=== PATIENT | male | born 1960 | race Caucasian/White ===

== ENCOUNTER 2019-09-21 19:28 | Inpatient (IN) ==
[2019-09-21] MEDS ORDERED: MORPHINE 4 MG/1 ML VIAL IV STA (23:06)
[2019-09-21] MEDS ORDERED: PANTOPRAZOLE 40 MG VIAL IV STA (23:06)
[2019-09-21] MEDS ORDERED: SODIUM CHLORIDE 0.9% 500 ML IV STA (23:06)
[2019-09-21] MEDS ORDERED: ONDANSETRON 4 MG/2 ML VIAL IV STA (23:06)
[2019-09-22 00:13] LABS: Basophils % 0.8 % (0.0-0.8); Eosinophils % 0.5 % (0.00-10.9); Hematocrit 46.2 VOL% (42.0-52.0); Hemoglobin 15.8 GM/DL (14.0-18.0); Immature Granulocytes % 0.3 %; Immature Granulocytes Absolute 0.01 #; Lymphocytes # 0.4 10*3/uL (1.4-4.0); Lymphocytes % 9.1 % (21.2-54.2); Mean Corpuscular HGB Conc 34.2 GM/DL (32-36); Mean Corpuscular Volume 97.1 FL (87-102); Mean Platelet Volume 9.6 FL (9.6-12.0); Monocytes % 30.9 % (1.7-12.7); Neutrophils % 58.4 % (38.7-73.9); Platelet Count 244 T/CUMM (130-400); Red Blood Count 4.76 MC/CUMM (3.8-5.5); Red Cell Distribution Width 12.6 % (9.3-17.3); White Blood Count 3.9 T/CUMM (4-12)
[2019-09-22 00:32] LABS: Albumin 3.7 G/DL (3.4-5.0); Bilirubin,Total 0.8 MG/DL (0.2-1.0); Calcium 9.4 MG/DL (8.5-10.1); Osmolality,Calculated 275.7 MOS/KG (273-304); Total Protein 8.2 G/DL (6.4-8.3)
[2019-09-22 01:08] LABS: Lymphocytes 14 % (20-55); Platelet Estimate Normal; Segmented Neutrophils 50 % (50-85); Total Cells Counted 100
[2019-09-22 02:56] LABS: Apearance,Urine CLEAR (Clear); Bilirubin,Urine Negative (Negative); Blood, Urine Small mg/dL (Negative); Glucose,Urine (UA) >=500 mg/dL (Negative); Ketones,Urine 20 mg/dL (Negative); Nitrite,Urine Negative (Negative); Protein,Urine Negative; RBC,Urine 1 /HPF (0-4); Urine Color Yellow (Yellow); Urine Specific Gravity 1.051 (1.001-1.035); Urine Urobilinogen < 2.0 EU/DL (0.2-1.0); WBC,Urine 1 /HPF (0-6)
[2019-09-22] MEDS ORDERED: MORPHINE 4 MG/1 ML VIAL IV STA (02:59)
[2019-09-22] MEDS ORDERED: PIPERACILLIN/TAZOBACTAM 3,375 MG in SODIUM CHLORIDE 0.9% 100 ML IV STA (03:00)
[2019-09-22] MEDS ORDERED: ONDANSETRON 4 MG/2 ML VIAL IV PRN (04:53)
[2019-09-22] MEDS ORDERED: DEXTROSE 10% 250 ML BAG IV PRN (04:59)
[2019-09-22] MEDS ORDERED: GLUCAGON 1 MG VIAL IM PRN (04:59)
[2019-09-22] MEDS ORDERED: HYDROmorphone 2 MG/1 ML VIAL IV STA (05:05)
[2019-09-22] MEDS ORDERED: metroNIDAZOLE INJ 500 MG in PREMIX 1 EACH IV SCH (06:00)
[2019-09-22] MEDS: HYDROmorphone 2 MG/1 ML VIAL IV PRN ×4 (06:07→19:45)
[2019-09-22] MEDS: SODIUM CHLORIDE 0.9% 1,000 ML IV SCH ×2 (06:11→15:00)
[2019-09-22] MEDS: FAMOTIDINE 20 MG/2 ML VIAL IV SCH ×2 (07:33→17:38)
[2019-09-22] MEDS ORDERED: MAGNESIUM SULF RIDER 4 GM in PREMIX 1 EACH IV PRN (08:42)
[2019-09-22] MEDS ORDERED: MAGNESIUM SULF RIDER 2 GM in PREMIX 1 EACH IV PRN (08:42)
[2019-09-22] MEDS ORDERED: ENOXAPARIN 40 MG/0.4 ML SYRINGE SUBCUT SCH (09:00)
[2019-09-22] MEDS: amLODIPine 2.5 MG TABLET PO SCH (10:05)
[2019-09-22] MEDS: INSULIN REGULAR 100 UNIT/ML SUBCUT SCH ×4 (10:10→21:47)
[2019-09-22] MEDS: PIPERACILLIN/TAZOBACTAM 3,375 MG in SODIUM CHLORIDE 0.9% 100 ML IV SCH ×2 (13:38→21:47)
[2019-09-23] MEDS: SODIUM CHLORIDE 0.9% 1,000 ML IV SCH ×3 (02:14→20:15)
[2019-09-23] MEDS: HYDROmorphone 2 MG/1 ML VIAL IV PRN ×4 (03:22→22:55)
[2019-09-23 05:24] LABS: Basophils # 0.1 10*3/uL (0.0-0.2); Basophils % 1.4 % (0.0-0.8); Eosinophils % 0.5 % (0.00-10.9); Hematocrit 42.5 VOL% (42.0-52.0); Hemoglobin 14.1 GM/DL (14.0-18.0); Immature Granulocytes % 0.9 %; Immature Granulocytes Absolute 0.04 #; Lymphocytes # 0.3 10*3/uL (1.4-4.0); Lymphocytes % 7.7 % (21.2-54.2); Mean Corpuscular HGB Conc 33.2 GM/DL (32-36); Mean Platelet Volume 9.6 FL (9.6-12.0); Neutrophils % 66.5 % (38.7-73.9); Platelet Count 232 T/CUMM (130-400); Red Blood Count 4.25 MC/CUMM (3.8-5.5); Red Cell Distribution Width 13.1 % (9.3-17.3); White Blood Count 4.3 T/CUMM (4-12)
[2019-09-23] MEDS: FAMOTIDINE 20 MG/2 ML VIAL IV SCH ×2 (05:38→16:28)
[2019-09-23] MEDS: PIPERACILLIN/TAZOBACTAM 3,375 MG in SODIUM CHLORIDE 0.9% 100 ML IV SCH ×3 (05:41→21:19)
[2019-09-23 05:45] LABS: Band Neutrophils 15 % (0-10); Eosinophils 3 % (0-10); Hypochromasia Slight; Lymphocytes 15 % (20-55); Platelet Estimate Adequate; Segmented Neutrophils 44 % (50-85); Total Cells Counted 100
[2019-09-23 06:03] LABS: Calcium 8.3 MG/DL (8.5-10.1); Osmolality,Calculated 283.3 MOS/KG (273-304)
[2019-09-23] MEDS ORDERED: INFLUENZA VIRUS VACCINE 0.5 ML SYRINGE IM ONE (07:57)
[2019-09-23] MEDS: amLODIPine 2.5 MG TABLET PO SCH (08:17)
[2019-09-23] MEDS: INSULIN REGULAR 100 UNIT/ML SUBCUT SCH ×4 (08:35→21:19)
[2019-09-23] MEDS: POTASSIUM CHLORIDE RIDER 10 MEQ in PREMIX 1 EACH IV PRN ×2 (14:03→15:33)
[2019-09-24 04:57] LABS: Basophils # 0.1 10*3/uL (0.0-0.2); Eosinophils # 0.1 10*3/uL (0.0-0.87); Hematocrit 36.9 VOL% (42.0-52.0); Hemoglobin 12.2 GM/DL (14.0-18.0); Immature Granulocytes Absolute 0.05 #; Lymphocytes # 0.5 10*3/uL (1.4-4.0); Lymphocytes % 9.9 % (21.2-54.2); Mean Corpuscular HGB Conc 33.1 GM/DL (32-36); Mean Corpuscular Volume 99.7 FL (87-102); Mean Platelet Volume 9.7 FL (9.6-12.0); Monocytes % 20.8 % (1.7-12.7); Neutrophils % 66.3 % (38.7-73.9); Platelet Count 198 T/CUMM (130-400)
[2019-09-24 05:38] LABS: Calcium 8.3 MG/DL (8.5-10.1); Osmolality,Calculated 291.4 MOS/KG (273-304)
[2019-09-24 05:56] LABS: Band Neutrophils 15 % (0-10); Eosinophils 1 % (0-10); Lymphocytes 12 % (20-55); Metamyelocytes 9 %; Segmented Neutrophils 45 % (50-85); Total Cells Counted 100
[2019-09-24 05:57] LABS: Hypochromasia 1+; Ovalocytes 1+; Platelet Estimate Normal; Target Cells Few
[2019-09-24 05:58] LABS: Atypical Lymphocytes Few
[2019-09-24] MEDS: PIPERACILLIN/TAZOBACTAM 3,375 MG in SODIUM CHLORIDE 0.9% 100 ML IV SCH ×2 (06:20→14:54)
[2019-09-24] MEDS: FAMOTIDINE 20 MG/2 ML VIAL IV SCH ×2 (06:20→17:43)
[2019-09-24] MEDS: SODIUM CHLORIDE 0.9% 1,000 ML IV SCH (07:32)
[2019-09-24] MEDS: INSULIN REGULAR 100 UNIT/ML SUBCUT SCH ×3 (09:24→16:32)
[2019-09-24] MEDS: POTASSIUM CHLORIDE RIDER 10 MEQ in PREMIX 1 EACH IV PRN (09:24)
[2019-09-24] MEDS: POTASSIUM CHLORIDE INJ 30 MEQ in SODIUM CHLORIDE 0.45% 1,000 ML IV SCH ×2 (11:45→16:32)
[2019-09-24] MEDS: amLODIPine 2.5 MG TABLET PO SCH (12:35)
[2019-09-24 15:53] VITALS: BP 124/76
== END 2019-09-24 17:30 | disposition home or self-care (01) | DRG 439 ==
LOC: N.ED 19:28 → SUPCPDRO 09-22 04:53 → N.EDINP 09-22 04:53 → N.4E 09-22 05:31
PROVIDERS: ADMIT Internal Medicine Cardiovascular Disease; ATTEND Internal Medicine Cardiovascular Disease

== ENCOUNTER 2019-10-25 12:34 | Inpatient (IN) ==
[2019-10-25] MEDS ORDERED: ONDANSETRON 4 MG/2 ML VIAL IV STA (16:23)
[2019-10-25] MEDS ORDERED: SODIUM CHLORIDE 0.9% 1,000 ML IV STA (16:23)
[2019-10-25] MEDS ORDERED: FLUCONAZOLE INJ 200 MG in PREMIX 1 EACH IV ONE (16:23)
[2019-10-25 17:00] LABS: Basophils # 0.1 10*3/uL (0.0-0.2); Basophils % 2.2 % (0.0-0.8); Hematocrit 37.7 VOL% (42.0-52.0); Immature Granulocytes % 1.2 %; Immature Granulocytes Absolute 0.05 #; Lymphocytes # 0.5 10*3/uL (1.4-4.0); Lymphocytes % 11.6 % (21.2-54.2); Mean Corpuscular HGB Conc 34.5 GM/DL (32-36); Mean Platelet Volume 9.9 FL (9.6-12.0); Monocytes % 26.3 % (1.7-12.7); Neutrophils % 58.7 % (38.7-73.9); Platelet Count 326 T/CUMM (130-400); Red Blood Count 4.01 MC/CUMM (3.8-5.5); Red Cell Distribution Width 14.1 % (9.3-17.3); White Blood Count 4.1 T/CUMM (4-12)
[2019-10-25 17:21] LABS: Alanine Aminotransferase 16 U/L (16-61); Albumin 2.4 G/DL (3.4-5.0); Alkaline Phosphatase 110 U/L (45-117); Aspartate Amino Transferase 16 U/L (0-37); Blood Urea Nitrogen 19 MG/DL (7-18); Calcium 8.7 MG/DL (8.5-10.1); Estimated Glom Filtration Rate 117 ML/MIN; Glucose 116 MG/DL (74-106); Osmolality,Calculated 259.1 MOS/KG (273-304); Total Protein 6.8 G/DL (6.4-8.3)
[2019-10-25] MEDS ORDERED: MAGNESIUM SULF RIDER 4 GM in PREMIX 1 EACH IV PRN (19:52)
[2019-10-25] MEDS ORDERED: MAGNESIUM SULF RIDER 2 GM in PREMIX 1 EACH IV PRN (19:52)
[2019-10-25] MEDS ORDERED: PROMETHAZINE 25 MG/1 ML VIAL IM PRN (19:52)
[2019-10-25] MEDS ORDERED: ONDANSETRON 4 MG/2 ML VIAL IV PRN (19:52)
[2019-10-25 19:54] LABS: Band Neutrophils 1 % (0-10); Lymphocytes 20 % (20-55); Myelocytes 1 %; Segmented Neutrophils 60 % (50-85); Total Cells Counted 99
[2019-10-25] MEDS: HYDROmorphone 2 MG/1 ML VIAL IV PRN (21:07)
[2019-10-25] MEDS: CIPROFLOXACIN INJ 400 MG in PREMIX 1 EACH IV SCH (22:44)
[2019-10-25] MEDS: SODIUM CHLOR 0.9% KCL 20 MEQ 20 MEQ/1,000 ML BAG IV SCH (22:44)
[2019-10-26] MEDS: HYDROmorphone 2 MG/1 ML VIAL IV PRN ×4 (01:36→20:39)
[2019-10-26 05:06] LABS: Basophils # 0.1 10*3/uL (0.0-0.2); Basophils % 2.2 % (0.0-0.8); Eosinophils % 0.2 % (0.00-10.9); Hematocrit 32.8 VOL% (42.0-52.0); Hemoglobin 11.2 GM/DL (14.0-18.0); Immature Granulocytes % 2.2 %; Immature Granulocytes Absolute 0.09 #; Lymphocytes # 0.6 10*3/uL (1.4-4.0); Lymphocytes % 13.8 % (21.2-54.2); Mean Corpuscular HGB Conc 34.1 GM/DL (32-36); Monocytes % 22.1 % (1.7-12.7); Neutrophils % 59.5 % (38.7-73.9); Platelet Count 262 T/CUMM (130-400); Red Blood Count 3.49 MC/CUMM (3.8-5.5); Red Cell Distribution Width 14.3 % (9.3-17.3); White Blood Count 4.1 T/CUMM (4-12)
[2019-10-26 05:30] LABS: Band Neutrophils 13 % (0-10); Hypochromasia Slight; Lymphocytes 19 % (20-55); Platelet Estimate Adequate; Segmented Neutrophils 49 % (50-85); Total Cells Counted 100
[2019-10-26 05:35] LABS: Osmolality,Calculated 259.8 MOS/KG (273-304)
[2019-10-26] MEDS: SODIUM CHLOR 0.9% KCL 20 MEQ 20 MEQ/1,000 ML BAG IV SCH ×2 (08:59→22:25)
[2019-10-26] MEDS ORDERED: PANTOPRAZOLE 40 MG VIAL IV SCH (09:00)
[2019-10-26] MEDS: CIPROFLOXACIN INJ 400 MG in PREMIX 1 EACH IV SCH ×2 (09:00→20:44)
[2019-10-26] MEDS ORDERED: FLUCONAZOLE INJ 200 MG in PREMIX 1 EACH IV SCH ×2 (16:30→20:00)
[2019-10-26] MEDS ORDERED: chlorproMAZINE 25 MG TABLET PO PRN (18:21)
[2019-10-26] MEDS ORDERED: ONDANSETRON 4 MG/2 ML VIAL IV PRN (19:16)
[2019-10-26] MEDS ORDERED: SODIUM CHLOR 0.9% KCL 20 MEQ 20 MEQ/1,000 ML BAG IV SCH (19:30)
[2019-10-27] MEDS: HYDROmorphone 2 MG/1 ML VIAL IV PRN (04:26)
[2019-10-27] MEDS: CIPROFLOXACIN INJ 400 MG in PREMIX 1 EACH IV SCH (08:38)
[2019-10-27] MEDS ORDERED: PANTOPRAZOLE 40 MG VIAL IV SCH (09:00)
[2019-10-27 09:30] VITALS: BP 128/68
== END 2019-10-27 13:15 | disposition home or self-care (01) | DRG 389 ==
LOC: N.ED 12:34 → N.EDINP 19:52 → SUATTDRO 19:52 → N.4E 20:48
PROVIDERS: ADMIT Phlebology; ATTEND Internal Medicine